=== PATIENT | female | born 1965 | race Caucasian/White ===

== ENCOUNTER 2017-02-23 10:22 | Emergency (ER) | payer OTHER ==
[2017-02-23] MEDS ORDERED: IBUPROFEN SUSP 100 MG/5 ML UDCUP PO ONE (10:36)
[2017-02-23 10:37] VITALS: BP 125/72; PULSE 62; RESP 16; TEMP 97.8; O2SAT 95
[2017-02-23] MEDS ORDERED: IBUPROFEN 200 MG TAB PO ONE (10:42)
--- NOTE | 2017-02-23 10:42 | UCPHY ---
H & P Time Seen by Provider: 02/23/17 10:31 Patient Type: New HPI/ROS: CHIEF COMPLAINT: Right hand pain History by patient HISTORY OF PRESENT ILLNESS: 51-year-old ambidextrous but mostly left hand dominant woman presents complaining of right hand and forearm pain after falling and landing on her right hand in arm onto a concrete surface when she was tripped playing with the dog. She denies any numbness or tingling. She complains of elbow and mostly right little finger pain. She also complains of right knee pain on her knee cap where she landed. Tetanus up-to-date. She denies hitting her head or other injury. She has not taken anything for pain yet. REVIEW OF SYSTEMS: As in HPI, and all other systems reviewed and are negative Smoking Status: Never smoked Physical Exam: General Appearance: Alert and no distress. Eyes: Pupils equal and round no injection. Musculoskeletal: Neck is supple and nontender. Extremities: Positive ecchymoses right olecranon with full range of motion of elbow extension, flexion and rotation. Radial pulse 2 +and equal bilaterally, positive ecchymoses of her right PIP joint of small finger, no metacarpal or wrist tenderness, distal cap refill less than 2 seconds, distal motor and sensation intact, full range of motion of all fingers and wrist. Left side unaffected. Right knee: Positive ecchymosis and abrasion over the patella, Full range of motion right knee and hip, no ligamental laxity or joint swelling, DP in PT pulses 2+ equal bilaterally, full range of motion right ankle and toes Skin: No rashes, ecchymoses as described above. Constitutional: Initial Vital Signs Temperature (C) 36.6 C 02/23/17 10:33 Heart Rate 62 02/23/17 10:33 Respiratory Rate 16 02/23/17 10:33 Blood Pressure 125/72 H 02/23/17 10:33 O2 Sat (%) 95 02/23/17 10:33 O2 Delivery Mode Room Air Allergies/Adverse Reactions: No Known Allergies Allergy (Unverified 02/23/17 10:32) Home Medications: Medication Instructions Recorded Doxycycline Monohydrate 02/23/17 Levothyroxine 02/23/17 PRISTIQ 02/23/17 Sertraline HCl 02/23/17 Medical Decision Making - Diagnostics Imaging: Imaging Impressions Hand X-Ray 02/23/17 10:37 Impression: Nondisplaced PIP joint avulsion of the fifth middle phalanx. ED Course/Re-evaluation: Patient presents with pain and bruising over the right small finger PIP, right elbow and right knee. She was given ibuprofen and areas were iced for pain. Patient has good range of motion and no bony tenderness of knee or elbow but imaging was obtained of right hand. X-ray was reviewed by me and showed small chip fracture of the right small finger at the IP joint. Patient was splinted. Tetanus is up-to-date. She is referred for orthopedic follow-up. Patient is discharged home in stable condition. - Data Points Medications Given: Discontinued Medications Ibuprofen (Motrin Oral Solution) 600 mg PO EDNOW ONE Stop: 02/23/17 10:37 Last Admin: 02/23/17 10:41 Dose: Not Given Ibuprofen (Motrin) 600 mg PO EDNOW ONE Stop: 02/23/17 10:43 Last Admin: 02/23/17 10:46 Dose: 600 mg Departure - Departure Disposition: Home, Routine, Self-Care Clinical Impression: Fracture of middle phalanx of finger of right hand, Multiple contusions Condition: Good Instructions: Finger Fracture (ED) Additional Instructions: You were seen by Dr. Katy Diaz today. Return for any worsening or new concerns. Take ibuprofen and/or Tylenol as needed for pain and ice painful areas. Follow up with Orthopedics next week to have your fracture evaluated. Referrals: DIOR KIMBLE MD [Other] - As per Instructions Mark Anthony Ken MD [Medical Doctor] - As per Instructions - PQRS PQRS Measurement: NA
== END 2017-02-23 11:28 | disposition home or self-care (01) ==
LOC: CED 10:22
DX: S62.656A Nondisplaced fracture of middle phalanx of right little finger, initial encounter for closed fracture (principal); S50.01XA Contusion of right elbow, initial encounter; S80.01XA Contusion of right knee, initial encounter; W19.XXXA Unspecified fall, initial encounter
CPT/HCPCS: 73130-PO; 99203-PO; G0463-PO